=== PATIENT | male | born 1955 | race African-American/Black ===

== ENCOUNTER 2017-01-31 15:04 | Inpatient (IN) | payer MEDICAID ==
[~2017-01-31] VITALS: Ht 162.6 cm; Wt 76.2 kg
[2017-01-31] MEDS ORDERED: GLUCOPHAGE XR500 MG ORAL (15:14)
[2017-01-31] MEDS ORDERED: DILANTIN50 MG ORAL (15:14)
[2017-01-31 15:48] LABS: BASOPHILS % (AUTO) 0.9 % (0.0-2.0); EOSINOPHILS % (AUTO) 0.9 % (0.0-3.0); LYMPHOCYTES % (AUTO) 17.5 % (20.0-45.0); MEAN CORPUSCULAR HEMOGLOBIN 27.1 PG (27.0-31.0); MEAN CORPUSCULAR HGB CONC 31.1 G/DL (32.0-36.0); MEAN CORPUSCULAR VOLUME 87 FL (80-99); MEAN PLATELET VOLUME 7.1 FL (6.5-10.1); MONOCYTES % (AUTO) 4.5 % (1.0-10.0); NEUTROPHILS % (AUTO) 76.2 % (45.0-75.0); PLATELET COUNT 223 K/UL (150-450); RED BLOOD COUNT 4.87 M/UL (4.70-6.10); RED CELL DISTRIBUTION WIDTH 13.7 % (11.6-14.8); WHITE BLOOD COUNT 9.2 K/UL (4.8-10.8)
[2017-01-31 15:55] LABS: APPEARANCE,URINE CLEAR; KETONES,URINE NEGATIVE (NEGATIVE); LEUKOCYTE ESTERASE ,URINE NEGATIVE (NEGATIVE); NITRITE,URINE NEGATIVE (NEGATIVE); PH,URINE 7 (4.5-8.0); PROTEIN,URINE NEGATIVE (NEGATIVE); UROBILINOGEN,URINE NORMAL MG/DL (0.0-1.0)
[2017-01-31 16:12] LABS: ALANINE AMINOTRANSFERASE 20 U/L (3-41); ALBUMIN/GLOBULIN RATIO 1.3 (1.0-2.7); ANION GAP 15 (5-15); ASPARTATE AMINO TRANSFERASE 24 U/L (5-40); CALCIUM 9.6 mg/dL (8.6-10.2); CARBON DIOXIDE 24 mEQ/L (20-30); CHLORIDE 101 mEQ/L (98-107); CREATININE 0.9 mg/dL (0.7-1.2); GLOMERULAR FILTRATION RATE > 60 mL/min (>60); HEMOLYSIS 8; MAGNESIUM 1.9 mg/dL (1.7-2.5); POTASSIUM 3.9 mEQ/L (3.4-4.9); SODIUM 140 mEQ/L (135-145); TOTAL PROTEIN 7.1 g/dL (6.6-8.7)
[2017-01-31 16:24] VITALS: BP 97/62
--- NOTE | 2017-01-31 16:24 | Emergency Room Report ---
History of Present Illness General Chief Complaint: Abnormal Labs Source: Patient Present Illness HPI This patient is brought in by EMS. He presents with hypoglycemia. She has a history of diabetes. He is on duncan. He does not use insulin. He states that he was feeling very fatigued but otherwise has no complaints. EMS reports that he had a blood sugar of 50 and he was given glucagon. He denies fever or chills. He denies chest pain or shortness of breath. He denies abdominal pain. He has no other complaints. Allergies: Coded Allergies: No Known Allergies (Unverified , 01/31/17) Patient History Past Medical History: see triage record, DM, HTN, seizures Social History: Denies: alcohol use, drug use, smoking Reviewed Nursing Documentation: PMH: Agreed, PSxH: Agreed Nursing Documentation-PMH Past Medical History: No History, Except For Hx Hypertension: Yes Hx Diabetes: Yes Review of Systems All Other Systems: negative except mentioned in HPI Physical Exam Vital Signs Date Time Temp Pulse Resp B/P Pulse Ox O2 Delivery O2 Flow Rate FiO2 01/31/17 14:59 100.0 72 12 159/68 98 Room Air Sp02 EP Interpretation: reviewed, normal General Appearance: no apparent distress, alert, GCS 15, non-toxic Head: normocephalic, atraumatic Eyes: bilateral eye PERRL, bilateral eye normal inspection ENT: hearing grossly normal, normal pharynx, no angioedema, normal voice Neck: full range of motion, supple/symm/no masses Respiratory: chest non-tender, lungs clear, normal breath sounds, speaking full sentences Cardiovascular #1: regular rate, rhythm, no edema Gastrointestinal: normal bowel sounds, non tender, soft, non-distended, no guarding, no rebound Rectal: deferred Musculoskeletal: back normal, gait/station normal, normal range of motion, non- tender Neurologic: alert, oriented x3, responsive, motor strength/tone normal, sensory intact, speech normal Psychiatric: judgement/insight normal, memory normal, mood/affect normal, no suicidal/homicidal ideation Skin: normal color, no rash, warm/dry, well hydrated Medical Decision Making Diagnostic Impression: Primary Impression: Hypoglycemia ER Course This patient presented with hypoglycemia. Patient was given D50 several times. His also given a high carbohydrate meal. However, he continued to have episodes of hypoglycemia during his ED course. Therefore, he was admitted for further monitoring of his blood sugar. I am unsure of the etiology of the patient's hypoglycemia. The patient states that he is only on metformin. He was admitted for further evaluation and treatment. Labs Test 01/31/17 15:20 01/31/17 15:30 White Blood Count 9.2 K/UL (4.8-10.8) Red Blood Count 4.87 M/UL (4.70-6.10) Hemoglobin 13.2 G/DL (14.2-18.0) Hematocrit 42.5 % (42.0-52.0) Mean Corpuscular Volume 87 FL (80-99) Mean Corpuscular Hemoglobin 27.1 PG (27.0-31.0) Mean Corpuscular Hemoglobin Concent 31.1 G/DL (32.0-36.0) Red Cell Distribution Width 13.7 % (11.6-14.8) Platelet Count 223 K/UL (150-450) Mean Platelet Volume 7.1 FL (6.5-10.1) Neutrophils (%) (Auto) 76.2 % (45.0-75.0) Lymphocytes (%) (Auto) 17.5 % (20.0-45.0) Monocytes (%) (Auto) 4.5 % (1.0-10.0) Eosinophils (%) (Auto) 0.9 % (0.0-3.0) Basophils (%) (Auto) 0.9 % (0.0-2.0) Sodium Level 140 mEQ/L (135-145) Potassium Level 3.9 mEQ/L (3.4-4.9) Chloride Level 101 mEQ/L (98-107) Carbon Dioxide Level 24 mEQ/L (20-30) Anion Gap 15 (5-15) Blood Urea Nitrogen 14 mg/dL (7-23) Creatinine 0.9 mg/dL (0.7-1.2) Estimat Glomerular Filtration Rate > 60 mL/min (>60) Glucose Level 73 mg/dL (74-106) Calcium Level 9.6 mg/dL (8.6-10.2) Magnesium Level 1.9 mg/dL (1.7-2.5) Total Bilirubin < 0.2 mg/dL (0.0-1.2) Aspartate Amino Transf (AST/SGOT) 24 U/L (5-40) Alanine Aminotransferase (ALT/SGPT) 20 U/L (3-41) Alkaline Phosphatase 74 U/L (40-129) Total Protein 7.1 g/dL (6.6-8.7) Albumin 4.1 g/dL (3.5-5.2) Globulin 3.0 g/dL Albumin/Globulin Ratio 1.3 (1.0-2.7) Urine Color Pale yellow Urine Appearance Clear Urine pH 7 (4.5-8.0) Urine Specific [place] 1.010 (1.005-1.035) Urine Protein Negative (NEGATIVE) Urine Glucose (UA) Negative (NEGATIVE) Urine Ketones Negative (NEGATIVE) Urine Occult Blood Negative (NEGATIVE) Urine Nitrite Negative (NEGATIVE) Urine Bilirubin Negative (NEGATIVE) Urine Urobilinogen Normal MG/DL (0.0-1.0) Urine Leukocyte Esterase Negative (NEGATIVE) EKG Diagnostic Results Rate: normal Rhythm: NSR ST Segments: no acute changes Rhythm Strip Diag. Results EP Interpretation: yes Rate: 60's Rhythm: NSR, no PVC's, no ectopy Last Vital Signs Date Time Temp Pulse Resp B/P Pulse Ox O2 Delivery O2 Flow Rate FiO2 01/31/17 14:59 100.0 72 12 159/68 98 Room Air Disposition: ADMITTED INPATIENT Condition: Serious Referrals: [facility],REFERRING (PCP) INOCENTE POLLACK D.O. Jan 31, 2017 16:24
[2017-01-31 18:23] VITALS: BP 131/58
[2017-01-31] MEDS ORDERED: Mylanta II UD 30ml ORAL PRN (20:30)
[2017-01-31] MEDS ORDERED: Morphine Sulfate 2mg/ml Inj IVP PRN (20:30)
[2017-01-31] MEDS ORDERED: LORazepam Inj 2mg/ml 1ml IV PRN (20:30)
[2017-01-31] MEDS ORDERED: Zolpidem 5mg tab ORAL PRN (20:30)
[2017-01-31] MEDS ORDERED: Miralax 17gm pkt ORAL PRN (20:30)
[2017-01-31 20:39] VITALS: BP 129/73
[2017-01-31] MEDS: NovoLOG Insulin Flexpen SUBQ SCH (21:00)
[2017-01-31] MEDS: D5 1/2NS 1,000 ML IV SCH (22:10)
[2017-02-01 00:11] VITALS: BP 130/69
[2017-02-01 04:14] VITALS: BP 144/79
[2017-02-01] MEDS: NovoLOG Insulin Flexpen SUBQ SCH ×4 (06:30→20:42)
[2017-02-01 08:00] VITALS: BP 139/78
[2017-02-01 08:05] LABS: BASOPHILS % (AUTO) 0.8 % (0.0-2.0); EOSINOPHILS % (AUTO) 1.6 % (0.0-3.0); LYMPHOCYTES % (AUTO) 27.1 % (20.0-45.0); MEAN CORPUSCULAR HEMOGLOBIN 27.8 PG (27.0-31.0); MEAN CORPUSCULAR HGB CONC 31.7 G/DL (32.0-36.0); MEAN CORPUSCULAR VOLUME 88 FL (80-99); MEAN PLATELET VOLUME 6.7 FL (6.5-10.1); MONOCYTES % (AUTO) 5.6 % (1.0-10.0); NEUTROPHILS % (AUTO) 64.9 % (45.0-75.0); PLATELET COUNT 200 K/UL (150-450); RED BLOOD COUNT 4.68 M/UL (4.70-6.10); RED CELL DISTRIBUTION WIDTH 13.5 % (11.6-14.8); WHITE BLOOD COUNT 9.6 K/UL (4.8-10.8)
[2017-02-01] MEDS ORDERED: Phenytoin 50mg tab ORAL SCH (09:00)
[2017-02-01] MEDS ORDERED: COLACE100 MG ORAL (09:52)
[2017-02-01] MEDS ORDERED: DICLOFENAC POTA50 MG PO (09:52)
[2017-02-01] MEDS ORDERED: GLIPIZIDE10 MG PO (09:52)
[2017-02-01] MEDS ORDERED: KEPPRA500 M4 ORAL (09:52)
[2017-02-01] MEDS ORDERED: TRAZODONE HCL50 MG ORAL (09:52)
[2017-02-01] MEDS ORDERED: METFORMIN HCL500 M4 ORAL (09:52)
[2017-02-01] MEDS ORDERED: ABILIFY20 MG ORAL (09:52)
[2017-02-01] MEDS ORDERED: D5 1/2NS 1000ml IV ONE (10:03)
[2017-02-01] MEDS: D5 1/2NS 1,000 ML IV SCH ×2 (10:10→18:44)
[2017-02-01 10:17] LABS: ALANINE AMINOTRANSFERASE 21 U/L (3-41); ALBUMIN/GLOBULIN RATIO 0.9 (1.0-2.7); ANION GAP 14 (5-15); ASPARTATE AMINO TRANSFERASE 26 U/L (5-40); CALCIUM 9.1 mg/dL (8.6-10.2); CARBON DIOXIDE 22 mEQ/L (20-30); CHLORIDE 100 mEQ/L (98-107); CHOLESTEROL 120 mg/dL (< 200); CHOLESTEROL/HDL RATIO 2.7 (3.3-4.4); CREATININE 0.9 mg/dL (0.7-1.2); GLOMERULAR FILTRATION RATE > 60 mL/min (>60); HEMOLYSIS 7; LDL CHOLESTEROL (CALC.) 65 mg/dL (60-99); POTASSIUM 4.7 mEQ/L (3.4-4.9); SODIUM 136 mEQ/L (135-145); TOTAL PROTEIN 7.8 g/dL (6.6-8.7)
[2017-02-01 10:18] LABS: THYROID STIMULATING HORMONE 0.984 uIU/mL (0.300-4.500)
[2017-02-01] MEDS ORDERED: Pneumococcal Vaccine 25mcg/0.5ml IM ONE (11:00)
--- NOTE | 2017-02-01 11:38 | Neurology Progress Note ---
Objective Physical Exam Last Vital Signs Date Time Temp Pulse Resp B/P Pulse Ox O2 Delivery O2 Flow Rate FiO2 02/01/17 08:00 75 02/01/17 08:00 97.9 20 139/78 97 Room Air Laboratory Tests Test 01/31/17 15:20 01/31/17 15:30 02/01/17 07:45 White Blood Count 9.2 K/UL (4.8-10.8) 9.6 K/UL (4.8-10.8) Red Blood Count 4.87 M/UL (4.70-6.10) 4.68 M/UL (4.70-6.10) L Hemoglobin 13.2 G/DL (14.2-18.0) L 13.0 G/DL (14.2-18.0) L Hematocrit 42.5 % (42.0-52.0) 40.9 % (42.0-52.0) L Mean Corpuscular Volume 87 FL (80-99) 88 FL (80-99) Mean Corpuscular Hemoglobin 27.1 PG (27.0-31.0) 27.8 PG (27.0-31.0) Mean Corpuscular Hemoglobin Concent 31.1 G/DL (32.0-36.0) L 31.7 G/DL (32.0-36.0) L Red Cell Distribution Width 13.7 % (11.6-14.8) 13.5 % (11.6-14.8) Platelet Count 223 K/UL (150-450) 200 K/UL (150-450) Mean Platelet Volume 7.1 FL (6.5-10.1) 6.7 FL (6.5-10.1) Neutrophils (%) (Auto) 76.2 % (45.0-75.0) H 64.9 % (45.0-75.0) Lymphocytes (%) (Auto) 17.5 % (20.0-45.0) L 27.1 % (20.0-45.0) Monocytes (%) (Auto) 4.5 % (1.0-10.0) 5.6 % (1.0-10.0) Eosinophils (%) (Auto) 0.9 % (0.0-3.0) 1.6 % (0.0-3.0) Basophils (%) (Auto) 0.9 % (0.0-2.0) 0.8 % (0.0-2.0) Sodium Level 140 mEQ/L (135-145) 136 mEQ/L (135-145) Potassium Level 3.9 mEQ/L (3.4-4.9) 4.7 mEQ/L (3.4-4.9) Chloride Level 101 mEQ/L (98-107) 100 mEQ/L (98-107) Carbon Dioxide Level 24 mEQ/L (20-30) 22 mEQ/L (20-30) Anion Gap 15 (5-15) 14 (5-15) Blood Urea Nitrogen 14 mg/dL (7-23) 12 mg/dL (7-23) Creatinine 0.9 mg/dL (0.7-1.2) 0.9 mg/dL (0.7-1.2) Estimat Glomerular Filtration Rate > 60 mL/min (>60) > 60 mL/min (>60) Glucose Level 73 mg/dL (74-106) L 164 mg/dL (74-106) H Calcium Level 9.6 mg/dL (8.6-10.2) 9.1 mg/dL (8.6-10.2) Magnesium Level 1.9 mg/dL (1.7-2.5) Total Bilirubin < 0.2 mg/dL (0.0-1.2) 0.2 mg/dL (0.0-1.2) Aspartate Amino Transf (AST/SGOT) 24 U/L (5-40) 26 U/L (5-40) Alanine Aminotransferase (ALT/SGPT) 20 U/L (3-41) 21 U/L (3-41) Alkaline Phosphatase 74 U/L (40-129) 70 U/L (40-129) Total Protein 7.1 g/dL (6.6-8.7) 7.8 g/dL (6.6-8.7) Albumin 4.1 g/dL (3.5-5.2) 3.7 g/dL (3.5-5.2) Globulin 3.0 g/dL 4.1 g/dL Albumin/Globulin Ratio 1.3 (1.0-2.7) 0.9 (1.0-2.7) L Urine Color Pale yellow Urine Appearance Clear Urine pH 7 (4.5-8.0) Urine Specific [place] 1.010 (1.005-1.035) Urine Protein Negative (NEGATIVE) Urine Glucose (UA) Negative (NEGATIVE) Urine Ketones Negative (NEGATIVE) Urine Occult Blood Negative (NEGATIVE) Urine Nitrite Negative (NEGATIVE) Urine Bilirubin Negative (NEGATIVE) Urine Urobilinogen Normal MG/DL (0.0-1.0) Urine Leukocyte Esterase Negative (NEGATIVE) Triglycerides Level 54 mg/dL (< 150) Cholesterol Level 120 mg/dL (< 200) LDL Cholesterol 65 mg/dL (60-99) HDL Cholesterol 44 mg/dL (> 60) Cholesterol/HDL Ratio 2.7 (3.3-4.4) L Thyroid Stimulating Hormone (TSH) 0.984 uIU/mL (0.300-4.500) Impression/Recommendations Problems: (1) Seizure disorder (2) Hypoglycemia Status: stable Recommendations #[id number] JENNIFER SIERRA Feb 01, 2017 11:38
[2017-02-01] MEDS: Phenytoin 100mg cap ORAL SCH ×2 (11:53→20:40)
[2017-02-01 12:00] VITALS: BP 117/78
--- NOTE | 2017-02-01 13:07 | History and Physical ---
History of Present Illness General Date patient seen: Feb 01, 2017 Reason for Hospitalization: Abnormal Labs Present Illness HPI 62 year old male with hx of DM brought in by EMS with CC of hypoglycemia. He was feeling very fatigued but otherwise has no complaints. EMS reports that he had a blood sugar of 50 and he was given glucagon. He is admitted for refractory hypoglycemia and especially that Glipizide has a long half-time. Allergies: Coded Allergies: No Known Allergies (Unverified , 01/31/17) Medication History Scheduled Aripiprazole* (Abilify*), 30 MG ORAL TID, (Reported) Docusate Sodium* (Colace*), 100 MG ORAL DAILY, (Reported) Glipizide (Glipizide), 10 MG PO BID, (Reported) Levetiracetam (Keppra), 500 MG ORAL EVERY 12 HOURS, (Reported) Metformin Hcl (Metformin Hcl Er), 500 MG ORAL BID, (Reported) Phenytoin (Dilantin), 50 MG ORAL THREE TIMES A DAY, (Reported) Trazodone Hcl* (Desyrel*), 50 MG ORAL BEDTIME, (Reported) Scheduled PRN Diclofenac Potassium (Diclofenac Potassium), 50 MG PO DAILY PRN for For Headache , (Reported) Patient History Healthcare decision maker pt alert and oriented x2 Resuscitation status Full Code Advanced Directive on File Review of Systems All Other Systems: negative except mentioned in HPI Physical Exam General Appearance: WD/WN, no apparent distress Lines, tubes and drains: peripheral HEENT: normocephalic, atraumatic Neck: non-tender, normal alignment Respiratory/Chest: chest wall non-tender Cardiovascular/Chest: normal peripheral pulses Abdomen: normal bowel sounds Genitourinary/Rectal: normal genital exam Extremities: normal range of motion Last 24 Hour Vital Signs Date Time Temp Pulse Resp B/P Pulse Ox O2 Delivery O2 Flow Rate FiO2 02/01/17 08:00 75 02/01/17 08:00 97.9 81 20 139/78 97 Room Air 02/01/17 04:14 98.2 86 20 144/79 95 Room Air 02/01/17 04:00 60 02/01/17 00:11 98.7 71 21 130/69 95 Room Air 02/01/17 00:00 67 01/31/17 20:39 97.2 72 20 129/73 94 Room Air 01/31/17 19:30 71 01/31/17 19:16 98.7 83 21 131/58 97 Room Air 01/31/17 18:23 98.7 83 21 131/58 97 Room Air 01/31/17 16:24 98.7 67 18 97/62 97 Room Air 01/31/17 14:59 100.0 72 12 159/68 98 Room Air Intake and Output 01/31/17 02/01/17 19:00 07:00 Intake Total 240 ml 600 ml Output Total 1175 ml Balance 240 ml -575 ml Intake Oral 240 ml IV Total 600 ml Output Urine Total 1175 ml # Voids 1 1 # Bowel Movements 3 Laboratory Tests Test 01/31/17 15:20 01/31/17 15:30 02/01/17 07:45 White Blood Count 9.2 K/UL (4.8-10.8) 9.6 K/UL (4.8-10.8) Red Blood Count 4.87 M/UL (4.70-6.10) 4.68 M/UL (4.70-6.10) L Hemoglobin 13.2 G/DL (14.2-18.0) L 13.0 G/DL (14.2-18.0) L Hematocrit 42.5 % (42.0-52.0) 40.9 % (42.0-52.0) L Mean Corpuscular Volume 87 FL (80-99) 88 FL (80-99) Mean Corpuscular Hemoglobin 27.1 PG (27.0-31.0) 27.8 PG (27.0-31.0) Mean Corpuscular Hemoglobin Concent 31.1 G/DL (32.0-36.0) L 31.7 G/DL (32.0-36.0) L Red Cell Distribution Width 13.7 % (11.6-14.8) 13.5 % (11.6-14.8) Platelet Count 223 K/UL (150-450) 200 K/UL (150-450) Mean Platelet Volume 7.1 FL (6.5-10.1) 6.7 FL (6.5-10.1) Neutrophils (%) (Auto) 76.2 % (45.0-75.0) H 64.9 % (45.0-75.0) Lymphocytes (%) (Auto) 17.5 % (20.0-45.0) L 27.1 % (20.0-45.0) Monocytes (%) (Auto) 4.5 % (1.0-10.0) 5.6 % (1.0-10.0) Eosinophils (%) (Auto) 0.9 % (0.0-3.0) 1.6 % (0.0-3.0) Basophils (%) (Auto) 0.9 % (0.0-2.0) 0.8 % (0.0-2.0) Sodium Level 140 mEQ/L (135-145) 136 mEQ/L (135-145) Potassium Level 3.9 mEQ/L (3.4-4.9) 4.7 mEQ/L (3.4-4.9) Chloride Level 101 mEQ/L (98-107) 100 mEQ/L (98-107) Carbon Dioxide Level 24 mEQ/L (20-30) 22 mEQ/L (20-30) Anion Gap 15 (5-15) 14 (5-15) Blood Urea Nitrogen 14 mg/dL (7-23) 12 mg/dL (7-23) Creatinine 0.9 mg/dL (0.7-1.2) 0.9 mg/dL (0.7-1.2) Estimat Glomerular Filtration Rate > 60 mL/min (>60) > 60 mL/min (>60) Glucose Level 73 mg/dL (74-106) L 164 mg/dL (74-106) H Calcium Level 9.6 mg/dL (8.6-10.2) 9.1 mg/dL (8.6-10.2) Magnesium Level 1.9 mg/dL (1.7-2.5) Total Bilirubin < 0.2 mg/dL (0.0-1.2) 0.2 mg/dL (0.0-1.2) Aspartate Amino Transf (AST/SGOT) 24 U/L (5-40) 26 U/L (5-40) Alanine Aminotransferase (ALT/SGPT) 20 U/L (3-41) 21 U/L (3-41) Alkaline Phosphatase 74 U/L (40-129) 70 U/L (40-129) Total Protein 7.1 g/dL (6.6-8.7) 7.8 g/dL (6.6-8.7) Albumin 4.1 g/dL (3.5-5.2) 3.7 g/dL (3.5-5.2) Globulin 3.0 g/dL 4.1 g/dL Albumin/Globulin Ratio 1.3 (1.0-2.7) 0.9 (1.0-2.7) L Urine Color Pale yellow Urine Appearance Clear Urine pH 7 (4.5-8.0) Urine Specific [place] 1.010 (1.005-1.035) Urine Protein Negative (NEGATIVE) Urine Glucose (UA) Negative (NEGATIVE) Urine Ketones Negative (NEGATIVE) Urine Occult Blood Negative (NEGATIVE) Urine Nitrite Negative (NEGATIVE) Urine Bilirubin Negative (NEGATIVE) Urine Urobilinogen Normal MG/DL (0.0-1.0) Urine Leukocyte Esterase Negative (NEGATIVE) Triglycerides Level 54 mg/dL (< 150) Cholesterol Level 120 mg/dL (< 200) LDL Cholesterol 65 mg/dL (60-99) HDL Cholesterol 44 mg/dL (> 60) Cholesterol/HDL Ratio 2.7 (3.3-4.4) L Thyroid Stimulating Hormone (TSH) 0.984 uIU/mL (0.300-4.500) Phenytoin (Dilantin) Level < 0.8 ug/mL (10-20) L Height (Feet): 5 Height (Inches): 4.00 Weight (Pounds): 168 Medications Current Medications Medications (Trade) Dose Ordered Sig/[place] Route PRN Reason Start Time Stop Time Status Last Admin Dose Admin Acetaminophen (Tylenol) 650 mg Q4H PRN ORAL fever 01/31/17 20:30 03/02/17 20:29 Al Hydroxide/Mg Hydroxide (Mylanta II) 30 ml Q6H PRN ORAL dyspepsia 01/31/17 20:30 03/02/17 20:29 Dextrose (Dextrose 50%) STAT PRN IV Hypoglycemia 01/31/17 20:30 03/02/17 20:29 01/31/17 19:25 Dextrose/Sodium Chloride (D5 0.45% NS) 1,000 ml @ 75 mls/hr [id number] IV 01/31/17 21:00 03/02/17 20:59 01/31/17 22:10 Insulin Aspart BEFORE MEALS AND HS SUBQ 01/31/17 21:00 03/02/17 20:59 02/01/17 11:48 Levetiracetam (Keppra) 1,000 mg Q12HR ORAL 02/01/17 12:00 03/03/17 11:59 02/01/17 11:52 Lorazepam (Ativan 2mg/ml 1ml) 0.5 mg Q4H PRN IV For Anxiety 01/31/17 20:30 02/07/17 20:29 Morphine Sulfate (Morphine Sulfate) 1 mg EVERY 4 HOURS PRN IVP For Pain 01/31/17 20:30 02/07/17 20:29 Ondansetron HCl (Zofran) 4 mg Q6H PRN IVP Nausea & Vomiting 01/31/17 20:30 03/02/17 20:29 Phenytoin (Dilantin) 100 mg Q12HR ORAL 02/01/17 12:00 03/03/17 11:59 02/01/17 11:53 Polyethylene Glycol (Miralax) 17 gm HSPRN PRN ORAL Constipation 01/31/17 20:30 03/02/17 20:29 Zolpidem Tartrate (Ambien) 5 mg HSPRN PRN ORAL Insomnia 01/31/17 20:30 03/02/17 20:29 Assessment/Plan Problem List: (1) HTN (hypertension) ICD Codes: I10 - Essential (primary) hypertension SNOMED: 99981408 (2) Hypoglycemia ICD Codes: E16.2 - Hypoglycemia, unspecified SNOMED: 526763538 (3) Seizure disorder ICD Codes: G40.909 - Epilepsy, unspecified, not intractable, without status epilepticus SNOMED: 909965331 Assessment/Plan D5 1/2ns sliding scale Endo evaluation will dc Glipizide DENNIS IVERSON Feb 01, 2017 13:07
[2017-02-01 16:00] VITALS: BP 122/83
[2017-02-01 20:00] VITALS: BP 140/66
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
[2017-02-02] VITALS: BP 146/81
[2017-02-02 04:20] VITALS: BP 123/74
[2017-02-02] MEDS: NovoLOG Insulin Flexpen SUBQ SCH ×2 (06:11→12:18)
[2017-02-02 08:00] VITALS: BP 123/78
--- NOTE | 2017-02-02 08:43 | Pulmonology Progress Note ---
Assessment/Plan Assessment/Plan ASSESSMENT hypoglycemia chronic seizure disorder with poor control (subtherapeutic anticonvulsant levels ) HTN DM chronic psychiatric disorder hx of head trauma at age of 20 PLAN OF CARE IVF with dextrose, no further hypoglycemia, monitor closely decrease IVF rate endo eval SS of insulin prn seizure precautions, neuro follows anticonvulsant dosages adjusted as per neuro no further seizure activity lipid panel stable venous Duplex BLE negative monitor BP, stable, not on any antiHTN medications for now dc to [facility] today scripts provided Subjective Allergies: Coded Allergies: No Known Allergies (Unverified , 01/31/17) Subjective no seizure activity tele negative Objective Last 24 Hour Vital Signs Date Time Temp Pulse Resp B/P Pulse Ox O2 Delivery O2 Flow Rate FiO2 02/02/17 04:20 97.2 68 20 123/74 95 Room Air 02/02/17 04:00 61 02/02/17 00:00 61 02/02/17 00:00 97.7 69 18 146/81 97 Room Air 02/01/17 20:00 97.9 72 20 140/66 95 Room Air 02/01/17 20:00 66 02/01/17 16:00 97.6 84 20 122/83 97 Room Air 02/01/17 16:00 70 02/01/17 12:00 98.1 80 18 117/78 98 Room Air 02/01/17 12:00 74 Intake and Output 02/01/17 02/02/17 19:00 07:00 Intake Total 750 ml 825 ml Output Total 600 ml Balance 750 ml 225 ml Intake Oral 300 ml IV Total 450 ml 825 ml Output Urine Total 600 ml # Bowel Movements 1 General Appearance: WD/WN, no acute distress HEENT: normocephalic, atraumatic, anicteric, PERRL Respiratory/Chest: lungs clear, no respiratory distress, no accessory muscle use Cardiovascular: normal rate, regular rhythm, no JVD Abdomen: normal bowel sounds, soft, non tender Extremities: no edema, pedal pulses normal Neurologic/Psychiatric: alert, responsive Musculoskeletal: normal muscle bulk Microbiology Date/Time Source Procedure Growth Status 01/31/17 22:50 Rectum VRE Culture - Final NO VANCOMYCIN RESISTANT ENTEROCOCCUS ... Complete Current Medications Medications (Trade) Dose Ordered Sig/[place] Route PRN Reason Start Time Stop Time Status Last Admin Dose Admin Acetaminophen (Tylenol) 650 mg Q4H PRN ORAL fever 01/31/17 20:30 03/02/17 20:29 Al Hydroxide/Mg Hydroxide (Mylanta II) 30 ml Q6H PRN ORAL dyspepsia 01/31/17 20:30 03/02/17 20:29 Dextrose (Dextrose 50%) STAT PRN IV Hypoglycemia 01/31/17 20:30 03/02/17 20:29 01/31/17 19:25 Dextrose/Sodium Chloride (D5 0.45% NS) 1,000 ml @ 75 mls/hr [id number] IV 01/31/17 21:00 03/02/17 20:59 02/01/17 18:44 Insulin Aspart BEFORE MEALS AND HS SUBQ 01/31/17 21:00 03/02/17 20:59 02/02/17 06:11 Levetiracetam (Keppra) 1,000 mg Q12HR ORAL 02/01/17 12:00 03/03/17 11:59 02/01/17 20:40 Lorazepam (Ativan 2mg/ml 1ml) 0.5 mg Q4H PRN IV For Anxiety 01/31/17 20:30 02/07/17 20:29 Morphine Sulfate (Morphine Sulfate) 1 mg EVERY 4 HOURS PRN IVP For Pain 01/31/17 20:30 02/07/17 20:29 Ondansetron HCl (Zofran) 4 mg Q6H PRN IVP Nausea & Vomiting 01/31/17 20:30 03/02/17 20:29 Phenytoin (Dilantin) 100 mg Q12HR ORAL 02/01/17 12:00 03/03/17 11:59 02/01/17 20:40 Polyethylene Glycol (Miralax) 17 gm HSPRN PRN ORAL Constipation 01/31/17 20:30 03/02/17 20:29 Zolpidem Tartrate (Ambien) 5 mg HSPRN PRN ORAL Insomnia 01/31/17 20:30 03/02/17 20:29 Zenobia Potter NP (Vanchtein) Feb 02, 2017 08:43
[2017-02-02] MEDS: Phenytoin 100mg cap ORAL SCH (08:54)
[2017-02-02] MEDS ORDERED: D5 1/2NS 1,000 ML IV SCH (09:00)
[2017-02-02] MEDS ORDERED: KEPPRA500 M3 ORAL (10:54)
[2017-02-02] MEDS ORDERED: DILANTIN100 MG ORAL (10:54)
[2017-02-02 12:00] VITALS: BP 124/70
--- NOTE | 2017-02-04 09:16 | Discharge Summary ---
Discharge Summary Hospital Course Date of Admission Jan 31, 2017 at 17:40 Date of Discharge Feb 02, 2017 at 13:40 Admitting Diagnosis hypoglycemia HPI Iftikhar Hernández is a 62 year old male who was admitted on Jan 31, 2017 at 17:40 for Hypoglycemia Hospital Course dc summary #[id number] Discharge Medications New Medications: Levetiracetam (Levetiracetam) 500 Mg Tablet 1000 MG ORAL Q12HR, #60 TAB Phenytoin Sodium Extended* (Dilantin*) 100 Mg Capsule 100 MG ORAL Q12HR, #60 CAP Continued Medications: Aripiprazole* (Abilify*) 20 Mg Tablet 30 MG ORAL TID, TAB Diclofenac Potassium (Diclofenac Potassium) 50 Mg Tablet 50 MG PO DAILY PRN for For Headache, TAB Docusate Sodium* (Colace*) 100 Mg Capsule 100 MG ORAL DAILY, CAP Metformin Hcl (Metformin Hcl Er) 500 Mg Tab.er.24 500 MG ORAL BID, TAB Trazodone Hcl* (Desyrel*) 50 Mg Tablet 50 MG ORAL BEDTIME, TAB Discontinued Medications: Levetiracetam (Keppra) 500 Mg Tablet 500 MG ORAL EVERY 12 HOURS, #60 TAB 0 Refills Discharge Condition Upon Discharge: stable Discharge Disposition Patient was discharged to [facility] (01) Discharge Diagnoses: Tariq (Silverio)Zenobia NP Feb 04, 2017 09:16
--- NOTE | 2017-02-04 22:37 | Cardiology Report ---
APPROVED REPORT EKG Measurement Heart [id number] CO 140P75 [id number] Normal sinus rhythm Normal ECG
--- NOTE | 2017-02-05 03:18 | Discharge Summary 2 SIG ---
DATE OF ADMISSION: 01/31/2017 DATE OF DISCHARGE: 02/02/2017 REASON FOR ADMISSION: 62-year-old male was brought to emergency department with episode of hypoglycemia. The patient has a history of diabetes. The patient was taking metformin and glipizide. The patient was not taking insulin. The patient reported being fatigued, but had no other symptoms. In the field, blood sugar was 50. The patient was given glucagon. He denied fever or chills. He denied chest pain or shortness of breath. He denied abdominal pain or urinary symptoms. Troponin was negative. EKG with normal sinus rhythm, no ischemic changes.. The patient with a history of hypertension and seizure disorder. No evidence of recent seizure activity. Laboratory workup was unremarkable. The patient was given dextrose several times in the emergency department as well as a high carbohydrate meal; however, the patient continued to have episodes of hypoglycemia during the emergency department course. Therefore, the patient was admitted for further management of his blood sugar. ADMITTING DIAGNOSES: 1. Hypoglycemia. 2. Diabetes mellitus. 3. Seizure disorder. 4. Hypertension. HOSPITAL STAY: The patient admitted to telemetry floor. The patient started on the IV fluids with dextrose. Glipizide stopped. Blood sugar stabilized. No further episodes of hypoglycemia. Seizure precaution maintained. Neurologist evaluation requested. Subtherapeutic dose of Dilantin. Anticonvulsant dosages were adjusted by neurologist. Lipid panel checked and was stable. Venous duplex bilateral lower extremities was negative. Blood pressure was stable, not on any antihypertensive medication at the time. The patient with a history of head trauma at the age of 20, and since that time have seizure disorder. The patient was stable for discharge to Board and Care. DISCHARGE DIAGNOSES: 1. Hypoglycemia. 2. Chronic seizure disorder with poor control (subtherapeutic anticonvulsant levels). 3. Hypertension. 4. Diabetes. 5. Chronic psychiatric disorder. 6. History of head trauma at age of 20. DISCHARGE MEDICATIONS: See medication reconciliation list. Prescription for new dosages of anti-convulsant medication provided. Off glipizide. Continue metformin. DISCHARGE INSTRUCTIONS: The patient to follow up with the primary medical doctor. Reinforce compliance with medication. Lalit Spencer M.D. Zenobia MalinTierney oliveira DR: ASMI JOB#: [id number] CC: LESLI
--- NOTE | 2017-02-07 23:20 | Diagnostic Imaging Report ---
APPROVED REPORT CPT Code: 15046 Present Symptoms Comments: Pain BILATERAL: Imaging reveals a patent deep venous system bilaterally. There is no evidence of thrombus within the femoral, popliteal or tibial segments. The greater saphenous veins are also within normal limits. Doppler indicates normal spontaneous flow within these segments.
== END 2017-02-02 13:40 | disposition home or self-care (01) | DRG 420 ==
LOC: EDBD 15:04 → EMR 15:30 → 2E 17:40 → EDBEDREQ 18:35
DX: E11.649 Type 2 diabetes mellitus with hypoglycemia without coma (principal); I10 Essential (primary) hypertension; G40.909 Epilepsy, unspecified, not intractable, without status epilepticus; Z87.820 Personal history of traumatic brain injury; F99 Mental disorder, not otherwise specified
CPT/HCPCS: 36415; 80053; 80061; 80185; 80299; 81003; 82962; 83735; 84443; 85025; 87081; 90732; 93005; 93970; J1815

== ENCOUNTER 2018-09-13 05:16 | Inpatient (IN) | payer MEDICAID ==
[2018-09-13] VITALS (9 sets, daily range): BP systolic 103–151; BP diastolic 61–80
[~2018-09-13] VITALS: Ht 162.6 cm; Wt 67.6 kg
[~2018-09-13 05:16] MED LIST: ABILIFY20 MG ORAL; COLACE100 MG ORAL; DICLOFENAC POTA50 MG PO; DILANTIN100 MG ORAL; DILANTIN50 MG ORAL; GLIPIZIDE10 MG PO; GLUCOPHAGE XR500 MG ORAL; KEPPRA500 M3 ORAL; KEPPRA500 M4 ORAL; METFORMIN HCL500 M4 ORAL; TRAZODONE HCL50 MG ORAL
--- NOTE | 2018-09-13 05:20 | Emergency Room Report ---
History of Present Illness General Chief Complaint: Overdose Source: Patient, EMS (Otis Goldman MD) Present Illness HPI This is a 53-year-old male who is homeless. He called 911 because he claimed that he took it seen Abilify pills. He took it about an hour ago. He said his suicidal. He just got out of long term 2 days ago. Before that he was at a psychiatric facility. Denies any fever chills but no nausea no vomiting. Similar symptom in the past. Denies any other complaint. Not taking his medication. (Otis Goldman MD) Allergies: Coded Allergies: No Known Allergies (Unverified , 01/31/17) Patient History Past Medical History: see triage record, old chart reviewed, psych hx, schizophrenia, bipolar, diabetes, seizures Past Surgical History: other Family History: none Social History: other Immunizations: other Reviewed Nursing Documentation: PMH: Agreed; PSxH: Agreed (Otis Goldman MD) Nursing Documentation-PMH Hx Diabetes: Yes Hx Seizures: Yes (Otis Goldman MD) Review of Systems ENT: Denies: sore throat Cardiovascular: Denies: chest pain, palpitations Gastrointestinal/Abdominal: Denies: nausea, vomiting, diarrhea Musculoskeletal: Denies: back problems Skin: Denies: rash Neurological: Denies: VALDEZ, seizures All Other Systems: negative except mentioned in HPI (Otis Goldman MD) Physical Exam Vital Signs Date Time Temp Pulse Resp B/P (MAP) Pulse Ox O2 Delivery O2 Flow Rate FiO2 09/13/18 05:09 98.4 85 16 144/90 98 vitals normal Sp02 EP Interpretation: reviewed, normal General Appearance: alert/responsive, no apparent distress, non-toxic Head: normocephalic, atraumatic Eyes: PERRL, EOMI ENT: oropharynx normal Neck: supple/symm/no masses Respiratory: effort normal, no rhonchi, no wheezing Cardiovascular: no murmur, gallop, rub Gastrointestinal: non-tender, no mass, non-distended, no rebound/guarding, normal bowel sounds Musculoskeletal: gait & station normal Neurologic: oriented x3, sensory intact, motor strength/tone normal Skin: no rash, normal palpation (Otis Goldman MD) Medical Decision Making Diagnostic Impression: Primary Impression: Drug overdose Qualified Codes: T50.902A - Poisoning by unspecified drugs, medicaments and biological substances, intentional self-harm, initial encounter Additional Impressions: Suicidal behavior Qualified Codes: T14.91XA - Suicide attempt, initial encounter Unsteady gait Schizophrenia Qualified Codes: F20.9 - Schizophrenia, unspecified Cocaine abuse ER Course Patient alleged that he took 15 Abilify tablets. No evidence of any toxicity. This of his action and suicidal mediation, police placed him on a 5150. Labs and urine sent. Patient is medically clear, we'll get psych evaluation. (Otis Goldman MD) ER Course Please see above note. Apparently patient with unsteady gait which has not improved with observation. Needs assistance to stand. Unable to ambulate on own. Patient denies alcohol. Recently in long term. States usually takes Abilify but has not had for several days. Patient will be given Abilify and thiamine. Admit med with sitter. Contact Dr. Cueto for consultation. Laboratory Tests Test 09/13/18 06:00 09/13/18 06:20 White Blood Count 6.6 K/UL (4.8-10.8) Red Blood Count 4.88 M/UL (4.70-6.10) Hemoglobin 14.2 G/DL (14.2-18.0) Hematocrit 40.9 % (42.0-52.0) L Mean Corpuscular Volume 84 FL (80-99) Mean Corpuscular Hemoglobin 29.0 PG (27.0-31.0) Mean Corpuscular Hemoglobin Concent 34.6 G/DL (32.0-36.0) Red Cell Distribution Width 12.6 % (11.6-14.8) Platelet Count 203 K/UL (150-450) Mean Platelet Volume 5.8 FL (6.5-10.1) L Neutrophils (%) (Auto) 60.3 % (45.0-75.0) Lymphocytes (%) (Auto) 23.4 % (20.0-45.0) Monocytes (%) (Auto) 12.6 % (1.0-10.0) H Eosinophils (%) (Auto) 2.9 % (0.0-3.0) Basophils (%) (Auto) 0.7 % (0.0-2.0) Sodium Level 140 MMOL/L (136-145) Potassium Level 3.8 MMOL/L (3.5-5.1) Chloride Level 107 MMOL/L (98-107) Carbon Dioxide Level 28 MMOL/L (21-32) Anion Gap 5 mmol/L (5-15) Blood Urea Nitrogen 17 mg/dL (7-18) Creatinine 0.7 MG/DL (0.55-1.30) Estimate Glomerular Filtration Rate > 60 mL/min (>60) Glucose Level 86 MG/DL (74-106) Calcium Level 8.7 MG/DL (8.5-10.1) Total Bilirubin 0.5 MG/DL (0.2-1.0) Aspartate Amino Transferase (AST) 63 U/L (15-37) H Alanine Aminotransferase (ALT) 52 U/L (12-78) Alkaline Phosphatase 125 U/L (46-116) H Total Protein 8.3 G/DL (6.4-8.2) H Albumin 3.3 G/DL (3.4-5.0) L Globulin 5.0 g/dL Albumin/Globulin Ratio 0.7 (1.0-2.7) L Salicylates Level < 0.2 ug/mL (2.8-20) L Acetaminophen Level < 2 MCG/ML (10-30) L Phenytoin (Dilantin) Level < 0.5 ug/mL (10-20) L Phenobarbital Level < 1.0 ug/mL (15-40) L Serum Alcohol < 3 mg/dL Urine Color Yellow Urine Appearance Clear Urine pH 6 (4.5-8.0) Urine Specific Butler 1.020 (1.005-1.035) Urine Protein 1+ (NEGATIVE) H Urine Glucose (UA) Negative (NEGATIVE) Urine Ketones Negative (NEGATIVE) Urine Blood 2+ (NEGATIVE) H Urine Nitrite Negative (NEGATIVE) Urine Bilirubin Negative (NEGATIVE) Urine Urobilinogen 1 MG/DL (0.0-1.0) H Urine Leukocyte Esterase 1+ (NEGATIVE) H Urine RBC 0-2 /HPF (0 - 0) H Urine WBC 0-2 /HPF (0 - 0) Urine Squamous Epithelial Cells Occasional /LPF Urine Bacteria Occasional /HPF (NONE) Urine Opiates Screen Negative (NEGATIVE) Urine Barbiturates Screen Negative (NEGATIVE) Phencyclidine (PCP) Screen Negative (NEGATIVE) Urine Amphetamines Screen Negative (NEGATIVE) Urine Benzodiazepines Screen Negative (NEGATIVE) Urine Cocaine Screen Positive (NEGATIVE) H Urine Marijuana (THC) Screen Negative (NEGATIVE) (Colt Haley MD) Last Vital Signs Date Time Temp Pulse Resp B/P (MAP) Pulse Ox O2 Delivery O2 Flow Rate FiO2 09/13/18 05:09 98.4 85 16 144/90 98 Status: improved (Otis Goldman MD) Last Vital Signs Date Time Temp Pulse Resp B/P (MAP) Pulse Ox O2 Delivery O2 Flow Rate FiO2 09/14/18 07:30 86 16 Room Air 09/14/18 07:30 98.1 109/55 100 Status: improved (Colt Haley MD) Disposition: ADMITTED INPATIENT Condition: Serious Otsi Goldman MD Sep 13, 2018 05:20 Colt Haley MD Sep 14, 2018 05:26
[2018-09-13 06:23] LABS: ANION GAP 5 mmol/L (5-15); BASOPHILS % (AUTO) 0.7 % (0.0-2.0); BLOOD UREA NITROGEN 17 mg/dL (7-18); CALCIUM 8.7 MG/DL (8.5-10.1); CARBON DIOXIDE 28 MMOL/L (21-32); CHLORIDE 107 MMOL/L (98-107); CREATININE 0.7 MG/DL (0.55-1.30); EOSINOPHILS % (AUTO) 2.9 % (0.0-3.0); HEMATOCRIT 40.9 % (42.0-52.0); HEMOGLOBIN 14.2 G/DL (14.2-18.0); LYMPHOCYTES % (AUTO) 23.4 % (20.0-45.0); MEAN CORPUSCULAR VOLUME 84 FL (80-99); MONOCYTES % (AUTO) 12.6 % (1.0-10.0); NEUTROPHILS % (AUTO) 60.3 % (45.0-75.0); PLATELET COUNT 203 K/UL (150-450); POTASSIUM 3.8 MMOL/L (3.5-5.1); RED BLOOD COUNT 4.88 M/UL (4.70-6.10); RED CELL DISTRIBUTION WIDTH 12.6 % (11.6-14.8); SODIUM 140 MMOL/L (136-145); WHITE BLOOD COUNT 6.6 K/UL (4.8-10.8)
[2018-09-13 06:28] LABS: ALANINE AMINOTRANSFERASE 52 U/L (12-78); ALBUMIN 3.3 G/DL (3.4-5.0); ALBUMIN/GLOBULIN RATIO 0.7 (1.0-2.7); ALKALINE PHOSPHATASE 125 U/L (46-116); ASPARTATE AMINO TRANSFERASE 63 U/L (15-37); BILIRUBIN,TOTAL 0.5 MG/DL (0.2-1.0)
[2018-09-13 06:29] LABS: APPEARANCE,URINE CLEAR; BILIRUBIN, URINE NEGATIVE (NEGATIVE); GLUCOSE, URINE (UA) NEGATIVE (NEGATIVE); KETONES,URINE NEGATIVE (NEGATIVE); LEUKOCYTE ESTERASE ,URINE 1+ (NEGATIVE); NITRITE,URINE NEGATIVE (NEGATIVE); PH,URINE 6 (4.5-8.0); PROTEIN,URINE 1+ (NEGATIVE); UROBILINOGEN,URINE 1 MG/DL (0.0-1.0)
[2018-09-13 06:35] LABS: COLOR,URINE YELLOW
[2018-09-14] VITALS (9 sets, daily range): BP systolic 109–126; BP diastolic 48–78
[2018-09-14] MEDS ORDERED: Thiamine 100mg tab ORAL ONE (05:30)
[2018-09-14] MEDS ORDERED: ABILIFY10 MG ORAL (07:33)
[2018-09-14] MEDS ORDERED: GLIPIZIDE10 MG PO (07:33)
--- NOTE | 2018-09-14 08:26 | History and Physical ---
History of Present Illness General Date patient seen: Sep 14, 2018 Time patient seen: 08:21 Reason for Hospitalization: Overdose Present Illness HPI 53 yo homeless male with h/o schizophrenia presents because of suicidal attempt. Took over 15 abilify pills in order to commit suicide. Admits to SI. Patient just recently got out of residential 2 days ago. Admits that he is not compliant with his medications. Denies any other complaints, no cp, sob, headaches, visual changes, n/v, abd pain. Patient states he has been in a psychiatric facility in the past. currently pending psych eval 5150 hold placed Allergies: Coded Allergies: No Known Allergies (Unverified , 04/28/18) Medication History Scheduled Aripiprazole* (Abilify*), 5 MG ORAL TWICE A DAY, (Reported) Glipizide (Glipizide), 10 MG PO DAILY, (Reported) Patient History History Provided By: Patient Healthcare decision maker Resuscitation status Advanced Directive on File Family History Family History: Patient reports no known family medical history. Review of Systems Constitutional: Denies: no symptoms, see HPI, chills, sweats, fever, malaise, weakness, other Eye: Denies: no symptoms, see HPI, eye pain, blurred vision, tearing, double vision, nose pain, nose congestion, acuity changes, discharge, other ENT: Denies: no symptoms, see HPI, ear pain, ear discharge, nose pain, nose congestion, throat pain, throat swelling, mouth pain, hearing loss, nasal discharge, other Respiratory: Denies: no symptoms, see HPI, cough, orthopnea, shortness of breath, stridor, wheezing, DUNCAN, sputum, other Cardiovascular: Denies: no symptoms, see HPI, chest pain, edema, palpitations, syncope, PND, other Gastrointestinal: Denies: no symptoms, see HPI, abdominal pain, constipation, diarrhea, nausea, vomiting, melena, hematemesis, other Genitourinary: Denies: no symptoms, see HPI, discharge, dysuria, frequency, hematuria, pain, retention, incontinence, urgency, vag bleed/dc, other Musculoskeletal: Denies: no symptoms, see HPI, back pain, gout, joint pain, joint swelling, muscle pain, muscle stiffness, other Skin: Denies: no symptoms, see HPI, rash, change in color, change in hair/nails , dryness, lesions, other Psychiatric: Reports: anxiety, depressed feelings, emotional problems, SI; Denies: no symptoms, see HPI, prior hx, HI, hallucinations, other Neurological: Denies: no symptoms, see HPI, headache, numbness, paresthesia, seizure, tingling, tremors, focal weakness, syncope, dizziness, other Endocrine: Denies: no symptoms, see HPI, excessive sweating, flushing, intolerance to temperature, increased thirst, increased urine, unexplained weight loss, other Hematologic/Lymphatic: Denies: no symptoms, see HPI, anemia, blood clots, easy bleeding, easy bruising, swollen glands, diathesis, other Physical Exam General Appearance: WD/WN, no apparent distress HEENT: normocephalic, atraumatic, anicteric, mucous membranes moist, PERRL Neck: non-tender, normal alignment, supple, normal inspection Respiratory/Chest: chest wall non-tender, lungs clear, normal breath sounds, no respiratory distress, no accessory muscle use Cardiovascular/Chest: normal peripheral pulses, normal rate, regular rhythm Abdomen: normal bowel sounds, non tender, soft, no organomegaly, no mass Extremities: normal range of motion, non-tender, normal inspection Skin Exam: normal pigmentation, warm/dry 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, no motor/sensory deficits, alert, oriented x 3 Last 24 Hour Vital Signs Date Time Temp Pulse Resp B/P (MAP) Pulse Ox O2 Delivery O2 Flow Rate FiO2 09/14/18 07:30 86 16 Room Air 09/14/18 07:30 98.1 86 16 109/55 100 Room Air 09/14/18 04:55 98.6 82 20 110/71 99 Room Air 09/14/18 03:06 98.6 3 17 124/72 99 Room Air 09/14/18 03:06 98.6 73 17 124/72 99 Room Air 09/14/18 01:25 98.6 77 20 118/78 99 Room Air 09/13/18 23:22 98.6 73 20 112/73 99 Room Air 09/13/18 21:22 98.6 81 20 121/74 99 Room Air 09/13/18 19:52 98.6 82 20 131/69 99 Room Air 09/13/18 17:30 98.6 96 20 140/72 99 Room Air 09/13/18 15:10 90 15 139/78 98 Room Air 09/13/18 11:40 97 18 103/61 96 Room Air 09/13/18 09:40 98.0 78 16 148/78 100 Room Air Height (Feet): 5 Height (Inches): 4.00 Weight (Pounds): 150 Assessment/Plan Problem List: (1) Drug overdose Assessment & Plan: no signs of drug toxicity continue to monitor labs psych consult vitals stable Patient is medical cleared for discharge to psych facility. ICD Codes: T50.901A - Poisoning by unspecified drugs, medicaments and biological substances, accidental (unintentional), initial encounter SNOMED: 29826809, 213830586 Qualifiers: (2) Suicidal behavior Assessment & Plan: SI psych sitter 5150 ICD Codes: R46.89 - Other symptoms and signs involving appearance and behavior SNOMED: 664717520, [id number] Qualifiers: (3) Schizophrenia Assessment & Plan: psych eval stable ICD Codes: F20.9 - Schizophrenia, unspecified SNOMED: 26524155, 671451234 Qualifiers: Qualified Codes: F20.9 - Schizophrenia, unspecified Status: stable Assessment/Plan Patient is medical cleared for discharge to psych facility. 5150 ppx: scd diet: regular, safe tray I have spent spend over 71 minutes regarding patient care and counseling and over 42 minutes of face to face time. Chantel Rosales MD Sep 14, 2018 08:26
[2018-09-15 04:00] VITALS: BP 119/52
[2018-09-15 07:54] VITALS: BP 127/73
[2018-09-15 09:32] LABS: BASOPHILS % (AUTO) 0.8 % (0.0-2.0); EOSINOPHILS % (AUTO) 2.7 % (0.0-3.0); HEMATOCRIT 43.3 % (42.0-52.0); HEMOGLOBIN 13.9 G/DL (14.2-18.0); LYMPHOCYTES % (AUTO) 23.1 % (20.0-45.0); MEAN CORPUSCULAR VOLUME 82 FL (80-99); NEUTROPHILS % (AUTO) 64.4 % (45.0-75.0); PLATELET COUNT 240 K/UL (150-450); RED BLOOD COUNT 5.25 M/UL (4.70-6.10); RED CELL DISTRIBUTION WIDTH 12.5 % (11.6-14.8); WHITE BLOOD COUNT 7.5 K/UL (4.8-10.8)
[2018-09-15 09:44] LABS: ANION GAP 8 mmol/L (5-15); BLOOD UREA NITROGEN 16 mg/dL (7-18); CALCIUM 9.2 MG/DL (8.5-10.1); CARBON DIOXIDE 26 MMOL/L (21-32); CHLORIDE 103 MMOL/L (98-107); CREATININE 0.6 MG/DL (0.55-1.30); POTASSIUM 4.2 MMOL/L (3.5-5.1); SODIUM 137 MMOL/L (136-145)
--- NOTE | 2018-09-15 09:48 | General Progress Note ---
Assessment/Plan Problem List: (1) Drug overdose Assessment & Plan: no signs of drug toxicity continue to monitor labs psych consult vitals stable Patient is medical cleared for discharge to psych facility. ICD Codes: T50.901A - Poisoning by unspecified drugs, medicaments and biological substances, accidental (unintentional), initial encounter SNOMED: 94367253, 418401967 Qualifiers: Qualified Codes: T50.902A - Poisoning by unspecified drugs, medicaments and biological substances, intentional self-harm, initial encounter (2) Suicidal behavior Assessment & Plan: SI psych sitter 5150 ICD Codes: R46.89 - Other symptoms and signs involving appearance and behavior SNOMED: 632304623, [id number] Qualifiers: Qualified Codes: T14.91XA - Suicide attempt, initial encounter (3) Schizophrenia Assessment & Plan: psych eval stable ICD Codes: F20.9 - Schizophrenia, unspecified SNOMED: 54777139, 528038085 Qualifiers: Qualified Codes: F20.9 - Schizophrenia, unspecified Status: stable Assessment/Plan Patient is medical cleared for discharge to psych facility. 5150 ppx: scd diet: regular, safe tray I have spent spend over 45 minutes regarding patient care and counseling and over 35 minutes of face to face time. Subjective Date patient seen: Sep 15, 2018 Time patient seen: 09:46 Allergies: Coded Allergies: No Known Allergies (Unverified , 04/28/18) Subjective f/u SI denies any complaints no acute events overnight 5150 hold, pending inpatient psych placement still feeling Suicidal ROS: 12 point ros negative except for the above Objective Last 24 Hour Vital Signs Date Time Temp Pulse Resp B/P (MAP) Pulse Ox O2 Delivery O2 Flow Rate FiO2 09/15/18 07:54 97.7 82 18 127/73 (91) 96 09/15/18 07:16 78 16 98 Room Air 21 09/15/18 07:11 76 16 98 Room Air 21 09/15/18 04:00 97.6 82 19 119/52 (74) 98 09/14/18 23:45 97.9 78 20 121/59 (79) 98 09/14/18 21:00 Room Air 09/14/18 20:13 97.5 65 19 118/53 (74) 97 09/14/18 16:00 97.3 83 20 124/48 (73) 98 09/14/18 16:00 97.0 89 20 126/68 (87) 98 09/14/18 12:13 97.2 84 18 124/48 (73) 98 09/14/18 10:09 Room Air 09/14/18 10:00 98.6 84 18 120/66 (84) 98 Intake and Output 09/14/18 09/15/18 19:00 07:00 Intake Total 640 ml 480 ml Output Total 1000 ml Balance -360 ml 480 ml Intake Oral 640 ml 480 ml Output Urine Total 1000 ml # Voids 4 6 Laboratory Tests 09/15/18 09:20: White Blood Count 7.5, Red Blood Count 5.25, Hemoglobin 13.9L, Hematocrit 43.3, Mean Corpuscular Volume 82, Mean Corpuscular Hemoglobin 26.5L, Mean Corpuscular Hemoglobin Concent 32.1, Red Cell Distribution Width 12.5, Platelet Count 240, Mean Platelet Volume 5.9L, Neutrophils (%) (Auto) 64.4, Lymphocytes (%) (Auto) 23.1, Monocytes (%) (Auto) 9.0, Eosinophils (%) (Auto) 2.7, Basophils (%) (Auto ) 0.8, Sodium Level 137, Potassium Level 4.2, Chloride Level 103, Carbon Dioxide Level 26, Anion Gap 8, Blood Urea Nitrogen 16, Creatinine 0.6, Estimat Glomerular Filtration Rate > 60, Glucose Level 99, Calcium Level 9.2 Height (Feet): 5 Height (Inches): 4.00 Weight (Pounds): 149 General Appearance: no apparent distress, alert EENT: PERRL/EOMI, normal ENT inspection, TMs normal, pharynx normal Neck: non-tender, normal alignment, supple, normal inspection Cardiovascular: normal peripheral pulses, normal rate, regular rhythm Respiratory/Chest: chest wall non-tender, lungs clear, normal breath sounds, no respiratory distress, no accessory muscle use Abdomen: normal bowel sounds, non tender, soft, no organomegaly, no mass Extremities: normal range of motion, non-tender, normal inspection 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
[2018-09-15 11:22] VITALS: BP 137/82
--- NOTE | 2018-09-15 12:17 | General Progress Note ---
Assessment/Plan Problem List: (1) Schizophrenia ICD Codes: F20.9 - Schizophrenia, unspecified SNOMED: 37713067, 547276432 Qualifiers: (2) Drug overdose ICD Codes: T50.901A - Poisoning by unspecified drugs, medicaments and biological substances, accidental (unintentional), initial encounter SNOMED: 55557153, 510747518 Qualifiers: Assessment/Plan I recommend to dc when medically cleared The pt is not at imminent dts/sto the pt's presentation is not consistent with genuine psychotic sxs. Subjective Date patient seen: Sep 14, 2018 Allergies: Coded Allergies: No Known Allergies (Unverified , 01/31/17) Subjective the pt c/o AH Objective Last 24 Hour Vital Signs Date Time Temp Pulse Resp B/P (MAP) Pulse Ox O2 Delivery O2 Flow Rate FiO2 09/15/18 11:22 97.5 68 18 137/82 (100) 97 09/15/18 11:16 72 16 99 Room Air 21 09/15/18 11:10 71 16 99 Room Air 21 09/15/18 07:54 97.7 82 18 127/73 (91) 96 09/15/18 07:16 78 16 98 Room Air 21 09/15/18 07:11 76 16 98 Room Air 21 09/15/18 04:00 97.6 82 19 119/52 (74) 98 09/14/18 23:45 97.9 78 20 121/59 (79) 98 09/14/18 21:00 Room Air 09/14/18 20:13 97.5 65 19 118/53 (74) 97 09/14/18 16:00 97.3 83 20 124/48 (73) 98 09/14/18 16:00 97.0 89 20 126/68 (87) 98 Intake and Output 09/14/18 09/15/18 19:00 07:00 Intake Total 640 ml 480 ml Output Total 1000 ml Balance -360 ml 480 ml Intake Oral 640 ml 480 ml Output Urine Total 1000 ml # Voids 4 6 Laboratory Tests 09/15/18 09:20: White Blood Count 7.5, Red Blood Count 5.25, Hemoglobin 13.9L, Hematocrit 43.3, Mean Corpuscular Volume 82, Mean Corpuscular Hemoglobin 26.5L, Mean Corpuscular Hemoglobin Concent 32.1, Red Cell Distribution Width 12.5, Platelet Count 240, Mean Platelet Volume 5.9L, Neutrophils (%) (Auto) 64.4, Lymphocytes (%) (Auto) 23.1, Monocytes (%) (Auto) 9.0, Eosinophils (%) (Auto) 2.7, Basophils (%) (Auto ) 0.8, Sodium Level 137, Potassium Level 4.2, Chloride Level 103, Carbon Dioxide Level 26, Anion Gap 8, Blood Urea Nitrogen 16, Creatinine 0.6, Estimat Glomerular Filtration Rate > 60, Glucose Level 99, Calcium Level 9.2 Height (Feet): 5 Height (Inches): 4.00 Weight (Pounds): 149 General Appearance: no apparent distress, alert Neurologic: oriented x 3, responsive, normal mood/affect Josias Cueto MD Sep 15, 2018 12:17
[2018-09-15 16:00] VITALS: BP 132/80
[2018-09-15 20:00] VITALS: BP 124/67
[2018-09-15] MEDS ORDERED: LORazepam 1mg tab ORAL PRN (23:00)
--- NOTE | 2018-09-15 23:03 | Consultation ---
History of Present Illness General Date patient seen: Sep 15, 2018 Chief Complaint: Overdose Present Illness HPI 53 yo homeless male with h/o schizophrenia presents with "suicidal attempt." The pt was insisting that he was hearing voices however he was unable to specify what the voices are telling him. The pt stated that he doesn't have a place to go to and he was not reliable historian. he told me that he was recently hospitalized in [place]. he told the er doctor that he was recently at [facility]. the pt has been observed eating and his affect is not depressed nor anxious. Allergies: Coded Allergies: No Known Allergies (Unverified , 01/31/17) Medication History Scheduled Aripiprazole* (Abilify*), 30 MG ORAL TID Glipizide (Glipizide), 10 MG PO BID Levetiracetam (Levetiracetam), 1,000 MG ORAL Q12HR Metformin Hcl (Metformin Hcl Er), 500 MG ORAL BID Phenytoin Sodium Extended* (Dilantin*), 100 MG ORAL Q12HR Discontinued Medications Aripiprazole* (Abilify*), 5 MG ORAL TWICE A DAY, (Reported) Discontinued Reason: MD discontinued med Diclofenac Potassium (Diclofenac Potassium), 50 MG PO DAILY PRN for For Headache , (Reported) Discontinued Reason: MD discontinued med Docusate Sodium* (Colace*), 100 MG ORAL DAILY, (Reported) Discontinued Reason: MD discontinued med Glipizide (Glipizide), 10 MG PO DAILY, (Reported) Discontinued Reason: MD discontinued med Phenytoin (Dilantin), 50 MG ORAL THREE TIMES A DAY, (Reported) Discontinued Reason: MD discontinued med Trazodone Hcl* (Desyrel*), 50 MG ORAL BEDTIME, (Reported) Discontinued Reason: MD discontinued med Patient History Limited by: medical condition History Provided By: Patient, Medical Record Healthcare decision maker SELF Resuscitation status Full Code Advanced Directive on File Past Medical/Surgical History Past Medical/Surgical History: (1) Drug overdose (2) Schizophrenia (3) Unsteady gait (4) Suicidal behavior (5) Failure to thrive (6) Seizure disorder (7) HTN (hypertension) Review of Systems Psychiatric: Reports: hallucinations Physical Exam General Appearance: no apparent distress, alert Neurologic: oriented x 3, responsive, normal mood/affect Last 24 Hour Vital Signs Date Time Temp Pulse Resp B/P (MAP) Pulse Ox O2 Delivery O2 Flow Rate FiO2 09/15/18 21:00 Room Air 09/15/18 20:00 98.3 74 18 124/67 (86) 98 09/15/18 16:00 98.0 70 18 132/80 (97) 98 09/15/18 14:42 75 16 96 Room Air 21 09/15/18 14:35 73 16 97 Room Air 21 09/15/18 11:22 97.5 68 18 137/82 (100) 97 09/15/18 11:16 72 16 99 Room Air 21 09/15/18 11:10 71 16 99 Room Air 21 09/15/18 09:00 Room Air 09/15/18 07:54 97.7 82 18 127/73 (91) 96 09/15/18 07:16 78 16 98 Room Air 21 09/15/18 07:11 76 16 98 Room Air 21 09/15/18 04:00 97.6 82 19 119/52 (74) 98 09/14/18 23:45 97.9 78 20 121/59 (79) 98 Intake and Output 09/14/18 09/15/18 19:00 07:00 Intake Total 640 ml 480 ml Output Total 1000 ml Balance -360 ml 480 ml Intake Oral 640 ml 480 ml Output Urine Total 1000 ml # Voids 4 6 Laboratory Tests Test 09/15/18 09:20 White Blood Count 7.5 K/UL (4.8-10.8) Red Blood Count 5.25 M/UL (4.70-6.10) Hemoglobin 13.9 G/DL (14.2-18.0) L Hematocrit 43.3 % (42.0-52.0) Mean Corpuscular Volume 82 FL (80-99) Mean Corpuscular Hemoglobin 26.5 PG (27.0-31.0) L Mean Corpuscular Hemoglobin Concent 32.1 G/DL (32.0-36.0) Red Cell Distribution Width 12.5 % (11.6-14.8) Platelet Count 240 K/UL (150-450) Mean Platelet Volume 5.9 FL (6.5-10.1) L Neutrophils (%) (Auto) 64.4 % (45.0-75.0) Lymphocytes (%) (Auto) 23.1 % (20.0-45.0) Monocytes (%) (Auto) 9.0 % (1.0-10.0) Eosinophils (%) (Auto) 2.7 % (0.0-3.0) Basophils (%) (Auto) 0.8 % (0.0-2.0) Sodium Level 137 MMOL/L (136-145) Potassium Level 4.2 MMOL/L (3.5-5.1) Chloride Level 103 MMOL/L (98-107) Carbon Dioxide Level 26 MMOL/L (21-32) Anion Gap 8 mmol/L (5-15) Blood Urea Nitrogen 16 mg/dL (7-18) Creatinine 0.6 MG/DL (0.55-1.30) Estimat Glomerular Filtration Rate > 60 mL/min (>60) Glucose Level 99 MG/DL (74-106) Calcium Level 9.2 MG/DL (8.5-10.1) Height (Feet): 5 Height (Inches): 4.00 Weight (Pounds): 149 Medications Current Medications Medications (Trade) Dose Ordered Sig/[place] Route PRN Reason Start Time Stop Time Status Last Admin Dose Admin Lorazepam (Ativan) 2 mg Q6H PRN ORAL For Anxiety 09/15/18 23:00 09/22/18 22:59 UNV Risperidone (RisperDAL) 2 mg BID ORAL 09/15/18 13:00 10/15/18 12:59 09/15/18 19:10 Assessment/Plan Problem List: (1) Schizophrenia ICD Codes: F20.9 - Schizophrenia, unspecified SNOMED: [id number], [id number] Qualifiers: Assessment/Plan I recommend to dc when medically cleared The pt is not at imminent dts/sto the pt's presentation is not consistent with genuine psychotic sxs. Josias Cueto MD Sep 15, 2018 23:03
[2018-09-16] VITALS: BP 124/67
[2018-09-16 04:00] VITALS: BP 130/78
[2018-09-16 07:11] LABS: ANION GAP 8 mmol/L (5-15); BLOOD UREA NITROGEN 18 mg/dL (7-18); CALCIUM 9.3 MG/DL (8.5-10.1); CARBON DIOXIDE 27 MMOL/L (21-32); CHLORIDE 105 MMOL/L (98-107); CREATININE 0.7 MG/DL (0.55-1.30); POTASSIUM 4.2 MMOL/L (3.5-5.1); SODIUM 140 MMOL/L (136-145)
[2018-09-16 07:14] LABS: BASOPHILS % (AUTO) 0.5 % (0.0-2.0); EOSINOPHILS % (AUTO) 3.4 % (0.0-3.0); HEMATOCRIT 42.4 % (42.0-52.0); HEMOGLOBIN 13.7 G/DL (14.2-18.0); LYMPHOCYTES % (AUTO) 25.5 % (20.0-45.0); MEAN CORPUSCULAR VOLUME 83 FL (80-99); MONOCYTES % (AUTO) 10.4 % (1.0-10.0); NEUTROPHILS % (AUTO) 60.2 % (45.0-75.0); PLATELET COUNT 257 K/UL (150-450); RED BLOOD COUNT 5.11 M/UL (4.70-6.10); RED CELL DISTRIBUTION WIDTH 12.5 % (11.6-14.8); WHITE BLOOD COUNT 6.4 K/UL (4.8-10.8)
[2018-09-16] MEDS ORDERED: ABILIFY20 MG ORAL (07:46)
[2018-09-16] MEDS ORDERED: KEPPRA500 M3 ORAL (07:46)
[2018-09-16] MEDS ORDERED: METFORMIN HCL500 M4 ORAL (07:46)
[2018-09-16] MEDS ORDERED: GLIPIZIDE10 MG PO (07:46)
[2018-09-16] MEDS ORDERED: DILANTIN100 MG ORAL (07:46)
--- NOTE | 2018-09-16 07:51 | Discharge Instructions ---
Discharge Instructions Discharge Instructions Follow up with: psychiatry in 1 week, and pcp in 1 week Call MD/Return to Hospital if: you feel suicidal or like hurting anyone. return if hallucinations Activity: resume normal activities For Congestive Heart Failure Reminder Report to your physician any weight gain of 5 pounds or more in one week. Chantel Rosales MD Sep 16, 2018 07:51
--- NOTE | 2018-09-16 08:04 | Discharge Summary ---
Discharge Summary Hospital Course Date of Admission Sep 14, 2018 at 06:54 Date of Discharge 09/16/18 Admitting Diagnosis FAILURE TO THRIVE HPI Iftikhar Mendieta is a 63 year old male who was admitted on Sep 14, 2018 at 06:54 for suicidal ideations Hospital Course 53 yo homeless male with h/o schizophrenia presents because of suicidal attempt. Took over 15 abilify pills in order to commit suicide. Admits to SI. Patient just recently got out of skilled nursing 2 days ago. Admits that he is not compliant with his medications. Denies any other complaints, no cp, sob, headaches, visual changes, n/v, abd pain. Patient states he has been in a psychiatric facility in the past. Psychiatry was consulted. Per psychiatry patient is currently is not having SI and is stable per psych: "recommend to dc when medically cleared. The pt is not at imminent dts/sto. the pt's presentation is not consistent with genuine psychotic sxs." patient is homeless, patient is aware of discharge, patient understands the plan and would like to go home, states he has a place to stay and is refusing assisted or any inpatient psych facility at this time social services analyst and I have discussed appropriate dispo planning with patient at length however patient would like to go to the address he has given to . I have spent spend over 46 minutes regarding patient care, discharge disposition and counseling and over 35 minutes of face to face time. 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 grossly normal, no motor/sensory deficits, alert, oriented x 3, responsive, normal mood/affect Skin: normal pigmentation, warm/dry Discharge Medications Continued Medications: Aripiprazole* (Abilify*) 20 Mg Tablet 30 MG ORAL TID for 30 Days, #30 TAB (This prescription has been renewed) Glipizide (Glipizide) 10 Mg Tablet 10 MG PO BID for 60 Days, #30 TAB (This prescription has been renewed) Levetiracetam (Levetiracetam) 500 Mg Tablet 1000 MG ORAL Q12HR, #60 TAB (This prescription has been renewed) Metformin Hcl (Metformin Hcl Er) 500 Mg Tab.er.24 500 MG ORAL BID for 30 Days, #30 TAB (This prescription has been renewed) Phenytoin Sodium Extended* (Dilantin*) 100 Mg Capsule 100 MG ORAL Q12HR, #60 CAP (This prescription has been renewed) Discontinued Medications: Aripiprazole* (Abilify*) 10 Mg Tablet 5 MG ORAL TWICE A DAY, TAB Diclofenac Potassium (Diclofenac Potassium) 50 Mg Tablet 50 MG PO DAILY PRN for For Headache, TAB Docusate Sodium* (Colace*) 100 Mg Capsule 100 MG ORAL DAILY, CAP Glipizide (Glipizide) 10 Mg Tablet 10 MG PO DAILY, TAB Phenytoin (Dilantin) 50 Mg Tab.chew 50 MG ORAL THREE TIMES A DAY, #90 TAB 0 Refills Trazodone Hcl* (Desyrel*) 50 Mg Tablet 50 MG ORAL BEDTIME, TAB Discharge Condition Upon Discharge: stable Discharge Disposition Patient was discharged to Discharge Diagnoses: (1) Seizure disorder (2) HTN (hypertension) (3) Drug overdose (4) Schizophrenia (5) Suicidal behavior Discharge Instructions Discharge Instructions Follow up with: psychiatry in 1 week, and pcp in 1 week Call MD/Return to Hospital if: you feel suicidal or like hurting anyone. return if hallucinations Activity: resume normal activities Chantel Rosales MD Sep 16, 2018 08:04
[2018-09-16 08:10] VITALS: BP 131/63
== END 2018-09-16 10:53 | disposition home or self-care (01) | DRG 817 ==
LOC: EDBD 05:16 → MERGE 05:22 → EMR 05:22 → EDBD 05:22 → 4E 09-14 06:54 → MERGE 09-14 06:54 → EDBEDREQ 09-14 07:59 → 4E 09-14 09:32
DX: T43.592A Poisoning by other antipsychotics and neuroleptics, intentional self-harm, initial encounter (principal); F20.9 Schizophrenia, unspecified; Z59.0 Homelessness; T14.91XA Suicide attempt, initial encounter; F14.10 Cocaine abuse, uncomplicated; R26.81 Unsteadiness on feet; I10 Essential (primary) hypertension
CPT/HCPCS: 36415; 80048; 80053; 80184; 80185; 80307; 80329; 81003; 85025; 87081; 99285

== ENCOUNTER 2019-01-08 15:28 | Emergency (ER) | payer MEDICAID ==
[~2019-01-08] VITALS: Ht 188 cm; Wt 88.5 kg
[~2019-01-08 15:28] MED LIST changes: +ABILIFY10 MG ORAL
[2019-01-08 15:30] VITALS: BP 172/109
--- NOTE | 2019-01-08 15:30 | NUR ---
ED Nurse Note: pt bought by RA from side walk due to generalized weaknee on both legs. per pt, having pain for last 5 hrs. no injury or trauma reported. AAO x4. respirations even and non-labored noted. pt appears to be sleeping. skin warm to touch. high bp noted on school lunch monitor. no cp or SOB. will wait for the further order.
--- NOTE | 2019-01-08 16:17 | NUR ---
ED Nurse Note: pt went down for CT.
--- NOTE | 2019-01-08 17:05 | Diagnostic Imaging Report ---
Indication: Altered mental status Technique: Contiguous 5 mm thick transaxial imaging of the head obtained in a Siemens Sensation [address] scanner. Soft tissue and bone windows generated. Automatic Exposure Control was utilized. Total Dose length Product (DLP): 1498.[address] Dose Index Volume (CTDIvol): 70.38 mGy Comparison: none Findings: Patchy low-attenuation cystic foci noted within the thalami bilaterally and deep white matter. Fairly extensive white matter low-attenuation noted primarily in the periventricular distribution consistent with chronic small cell disease. There is no definite mass effect or edema. There is no evidence of acute intracranial hemorrhage. The bones are osteopenic and slightly heterogeneous. IMPRESSION: No definite evidence of acute intracranial hemorrhage, mass effect or edema. 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 The CT scanner at [facility] is accredited by the [employer] and the scans are performed using dose optimization techniques as appropriate to a performed exam including Automatic Exposure control.
[2019-01-08 17:30] VITALS: BP 174/111
--- NOTE | 2019-01-08 19:17 | Emergency Room Report ---
History of Present Illness General Chief Complaint: General Complaint Source: Patient Present Illness HPI 63-year-old male presents ED for evaluation. Patient brought in by EMS. Found on Street. He feels weak. Concern for alcohol use by EMS. Denies alcohol use. Denies drug use. Denies headaches. Denies blurry vision. Denies any abdominal pain nausea or vomiting. No other aggravating relieving factors. Denies any other associated symptoms Allergies: Coded Allergies: No Known Allergies (Unverified , 01/08/19) Patient History Past Medical History: HTN Past Surgical History: none Pertinent Family History: none Social History: Denies: smoking, alcohol use, drug use Immunizations: UTD Reviewed Nursing Documentation: PMH: Agreed; PSxH: Agreed Nursing Documentation-PMH Hx Hypertension: Yes Review of Systems All Other Systems: negative except mentioned in HPI Physical Exam Vital Signs Date Time Temp Pulse Resp B/P (MAP) Pulse Ox O2 Delivery O2 Flow Rate FiO2 01/08/19 15:17 98.4 100 18 200/100 96 Room Air Sp02 EP Interpretation: reviewed, normal General Appearance: no apparent distress, GCS 15, non-toxic, lethargic Head: normocephalic, atraumatic Eyes: bilateral eye normal inspection, bilateral eye PERRL ENT: hearing grossly normal, normal pharynx, no angioedema, normal voice Neck: full range of motion, supple/symm/no masses Respiratory: chest non-tender, lungs clear, normal breath sounds, speaking full sentences Cardiovascular #1: regular rate, rhythm, no edema Cardiovascular #2: 2+ carotid (R), 2+ carotid (L), 2+ radial (R), 2+ radial (L) , 2+ dorsalis pedis (R), 2+ dorsalis pedis (L) Gastrointestinal: normal bowel sounds, non tender, soft, non-distended, no guarding, no rebound Rectal: deferred Genitourinary: normal inspection, no CVA tenderness Musculoskeletal: back normal, gait/station normal, normal range of motion, non- tender Neurologic: other - lethargic Psychiatric: other - lethargic Reflexes: 3+ bicep (R), 3+ bicep (L), 3+ tricep (R), 3+ tricep (L), 3+ knee (R) , 3+ knee (L) Skin: normal color, no rash, warm/dry, well hydrated Lymphatic: no adenopathy Medical Decision Making Homeless Attestation I, The treating physician Dr. Hernandez, has assessed and agrees that patient is medically stable for discharge to an outpatient disposition. Diagnostic Impression: Primary Impression: Substance abuse ER Course Hospital Course 64 yo M presents with weakness, lethargy Differential diagnoses include: Psychosis, EtOH, drug abuse Clinical course patient placed on stretcher. On cafeteria monitor. After initial history and physical ordered IV fluids, CT head Utox + amphetamines, THC CT brain shows no acute pathology Patient alert and oriented. Walking in ED. Patient can be safely discharged at this time. Homeless checklist completed i. I feel this is a highly complex case requiring extensive working including EKG/Rhythm strip, Xray/CT/US, Blood/urine lab work, repeat exams while in ED, and administration of strong opiates/narcotics for pain control, admission to hospital or close patient follow up. Diagnosis - substance abuse Stable and discharged to home. Followup with PMD. Return to ED if symptoms recur or worsen Labs Test 01/08/19 17:10 Urine Opiates Screen Negative (NEGATIVE) Urine Barbiturates Screen Negative (NEGATIVE) Phencyclidine (PCP) Screen Negative (NEGATIVE) Urine Amphetamines Screen Positive (NEGATIVE) Urine Benzodiazepines Screen Negative (NEGATIVE) Urine Cocaine Screen Negative (NEGATIVE) Urine Marijuana (THC) Screen Positive (NEGATIVE) CT/MRI/US Diagnostic Results CT/MRI/US Diagnostic Results : Imaging Test Ordered: CT Head Impression no acute process Last Vital Signs Date Time Temp Pulse Resp B/P (MAP) Pulse Ox O2 Delivery O2 Flow Rate FiO2 01/08/19 17:30 85 15 174/111 99 Room Air 01/08/19 15:30 98.0 Status: improved Disposition: HOME, SELF-CARE Condition: Stable Steven Hernandez MD Jan 08, 2019 19:17
[2019-01-08 19:30] VITALS: BP 137/72
--- NOTE | 2019-01-08 19:30 | NUR ---
ER DISCHARGE NOTE: Patient is cleared to be discharged per ERMD, pt is aox4, on room air, with stable vital signs. pt was given dc and prescription instructions, pt was able to verbalize understanding, pt id band and iv site removed without complications. pt is able to ambulate with steady gait. pt took all belongings.
--- NOTE | 2019-01-08 19:30 | NUR ---
HAND-OFF: Report given to RICHIE Torres.
== END 2019-01-08 19:30 | disposition home or self-care (01) ==
LOC: EDBD 15:28 → EMR 17:58 → MERGE 17:58 → EMR 19:30
DX: F19.10 Other psychoactive substance abuse, uncomplicated (principal); I10 Essential (primary) hypertension; R41.82 Altered mental status, unspecified
CPT/HCPCS: 36415; 70450; 80307; 82962; 99284

== ENCOUNTER 2019-10-12 11:54 | Emergency (ER) | payer MEDICAID ==
[~2019-10-12] VITALS: Ht 167.6 cm; Wt 54.4 kg
[~2019-10-12 11:54] MED LIST changes: +ABILIFY2 MG ORAL
[2019-10-12 11:58] VITALS: BP 167/98
--- NOTE | 2019-10-12 11:58 | NUR ---
ED Nurse Note: Patient ANGIE, he was sleeping outside of a store and the store director perioperative called 911. Patient states he lives on the [address]. Patient AxO x 4, no s/s of acute distress. Patient connected to the security monitor, bed in lowest position.
[2019-10-12] MEDS ORDERED: Acetaminophen 500mg (ES) tab ORAL ONE (12:15)
--- NOTE | 2019-10-12 12:26 | NUR ---
ED Nurse Note: Patient taken to CT
--- NOTE | 2019-10-12 12:40 | NUR ---
ED Nurse Note: Patient returned from CT.
--- NOTE | 2019-10-12 13:12 | Diagnostic Imaging Report ---
Indication: Headache Technique: Contiguous 5 mm thick transaxial imaging of the head obtained in a Siemens Sensation [address] scanner. Soft tissue and bone windows generated. Automatic Exposure Control was utilized. Total Dose length Product (DLP): 1514.[address] Dose Index Volume (CTDIvol): 62.7 mGy Comparison: none Findings: The size and configuration of the cortical sulci, basal cisterns, and ventricles are within normal limits for age. There is no mass effect, midline shift, or edema identified. There is no evidence of acute hemorrhage or abnormal intra-axial or extra-axial fluid collections. The bones and soft tissues are unremarkable. There is left ethmoid sinus opacification. Impression: No mass effect, edema or acute bleed. Sinusitis The CT scanner at [facility] is accredited by the [employer] and the scans are performed using dose optimization techniques as appropriate to a performed exam including Automatic Exposure control.
[2019-10-12] MEDS ORDERED: ABILIFY20 MG ORAL (13:46)
[2019-10-12] MEDS ORDERED: TYLENOL EXTRA500 MG ORAL (13:46)
[2019-10-12] MEDS ORDERED: TAMIFLU75 MG ORAL (13:46)
[2019-10-12] MEDS ORDERED: DILANTIN100 MG ORAL (13:46)
[2019-10-12 13:55] VITALS: BP 158/99
--- NOTE | 2019-10-12 13:58 | Diagnostic Imaging Report ---
Indication: Dyspnea Comparison: None A single view chest radiograph was obtained. Findings: Cardiomediastinal appearance is within normal limits for age. The lungs are clear. Pulmonary vascularity is appropriate. The diaphragmatic contour is smooth and costophrenic angles are sharp. No pleural effusions are identified. The bones are unremarkable. Impression: No acute findings
--- NOTE | 2019-10-12 14:47 | Emergency Room Report ---
History of Present Illness General Chief Complaint: Upper Respiratory Illness Source: Patient Present Illness HPI 64-year-old male presents ED for evaluation. Brought in by EMS from Street. States that yesterday he fell and hit his head. Denies LOC. Complaining of headache and generalized pain. Dull, 8 out of 10, nonradiating. Also complaining of runny nose and congestion. Cough is dry. Denies fevers or chills. Did not receive flu shot this year. Was sleeping outside of building when owner/photographer called 911. No other aggravating relieving factors. Denies any other associated symptoms Allergies: Coded Allergies: No Known Allergies (Unverified , 01/31/17) Patient History Past Medical History: HTN, seizures, psych hx Past Surgical History: none Pertinent Family History: none Social History: Denies: smoking, alcohol use, drug use Immunizations: UTD Reviewed Nursing Documentation: PMH: Agreed; PSxH: Agreed Nursing Documentation-PMH Past Medical History: No History, Except For Hx Cardiac Problems: Yes Hx Hypertension: Yes Hx Diabetes: Yes Hx Cancer: No Hx Gastrointestinal Problems: No History Of Psychiatric Problem: Yes Hx Neurological Problems: Yes Hx Seizures: Yes Hx Weakness: Yes - UNSTEADY GAIT Review of Systems All Other Systems: negative except mentioned in HPI Physical Exam Vital Signs Date Time Temp Pulse Resp B/P (MAP) Pulse Ox O2 Delivery O2 Flow Rate FiO2 10/12/19 11:50 97.3 90 22 178/115 (136) 99 Room Air Sp02 EP Interpretation: reviewed, normal General Appearance: no apparent distress, alert, GCS 15, non-toxic Head: normocephalic, atraumatic Eyes: bilateral eye normal inspection, bilateral eye PERRL ENT: hearing grossly normal, normal pharynx, no angioedema, normal voice Neck: full range of motion, supple/symm/no masses Respiratory: chest non-tender, lungs clear, normal breath sounds, speaking full sentences Cardiovascular #1: regular rate, rhythm, no edema Cardiovascular #2: 2+ carotid (R), 2+ carotid (L), 2+ radial (R), 2+ radial (L) , 2+ dorsalis pedis (R), 2+ dorsalis pedis (L) Gastrointestinal: normal bowel sounds, non tender, soft, non-distended, no guarding, no rebound Rectal: deferred Genitourinary: normal inspection, no CVA tenderness Musculoskeletal: back normal, normal range of motion, gait/station normal, non- tender Neurologic: alert, motor strength/tone normal, oriented x3, sensory intact, responsive, speech normal Psychiatric: judgement/insight normal, memory normal, mood/affect normal, no suicidal/homicidal ideation Reflexes: 3+ bicep (R), 3+ bicep (L), 3+ tricep (R), 3+ tricep (L), 3+ knee (R) , 3+ knee (L) Lymphatic: no adenopathy Medical Decision Making Diagnostic Impression: Primary Impression: Flu-like symptoms Additional Impression: Fall Qualified Codes: W19.XXXA - Unspecified fall, initial encounter ER Course 64-year-old male presents the ED complaining of headache, cough and congestion. Status post fall. History of seizures. differential -head injury, seizure, influenza, pneumonia Placed on stretcher. After initial history and physical I ordered pain meds, CT head, chest x-ray. CT head unremarkable Chest x-rayno focal infiltrate I discussed findings with patient. Has history of seizures. No reported seizure activity. States he does not have his medications. I will provide refills. Also takes Abilify I will provide him with a refill of his Abilify. Safe for discharge for close outpatient follow-up. Given food and clothing. Patient states that he does have a place to live. I will provide PMD referrals Diagnosisflulike symptoms, fall Stable and discharged to home with prescription for Abilify, Dilantin, Tamiflu, Tylenol. Follow-up with PMD. Return to ED if symptoms recur or worsen Chest X-Ray Diagnostic Results Chest X-Ray Diagnostic Results : Chest X-Ray Ordered: Yes # of Views/Limited/Complete: 1 View Indication: Other - cough EP Interpretation: Yes Interpretation: no consolidation, no effusion, no pneumothorax, no acute cardiopulmonary disease Impression: No acute disease Electronically Signed by: Electronically signed by Steven Hernandez MD CT/MRI/US Diagnostic Results CT/MRI/US Diagnostic Results : Imaging Test Ordered: CT head Impression Findings: The size and configuration of the cortical sulci, basal cisterns, and ventricles are within normal limits for age. There is no mass effect, midline shift, or edema identified. There is no evidence of acute hemorrhage or abnormal intra- axial or extra-axial fluid collections. The bones and soft tissues are unremarkable. There is left ethmoid sinus opacification. Impression: No mass effect, edema or acute bleed. Last Vital Signs Date Time Temp Pulse Resp B/P (MAP) Pulse Ox O2 Delivery O2 Flow Rate FiO2 10/12/19 11:58 97.3 81 22 167/98 99 Room Air Status: improved Disposition: HOME, SELF-CARE Condition: Stable Scripts Acetaminophen* (TYLENOL EXTRA STRENGTH*) 500 Mg Tablet 500 MG ORAL Q8H PRN for Prn Headache/Temp > 101, #30 TAB 0 Refills Prov: Steven Hernandez MD 10/12/19 Oseltamivir Phosphate (Tamiflu) 75 Mg Capsule 75 MG ORAL TWICE A DAY for 5 Days, #10 CAP Prov: Steven Hernandez MD 10/12/19 Phenytoin Sodium Extended* (DILANTIN*) 100 Mg Capsule 100 MG ORAL Q12HR, #60 CAP Prov: Steven Hernandez MD 10/12/19 Aripiprazole* (ABILIFY*) 20 Mg Tablet 30 MG ORAL TID for 30 Days, #30 TAB Prov: Steven Hernandez MD 10/12/19 Referrals: NON PHYSICIAN (PCP) [facility] Patient Instructions: Seizure, Adult, [id number] Steven Hernandez MD Oct 12, 2019 14:46
--- NOTE | 2019-10-12 16:07 | NUR ---
ER DISCHARGE NOTE: Patient is cleared to be discharged per ERMD, pt is aox4, on room air, with stable vital signs. Patient now says he lives at [address] in [place], which is also the address listed in his demographics. Patient was given dc and prescription instructions, pt was able to verbalize understanding, pt id band removed. pt is able to ambulate with steady gait. Patient given winter-appropriate clothing, sandwich, and juice, along with taxi voucher.
== END 2019-10-12 13:55 | disposition home or self-care (01) ==
LOC: EDBD 11:54 → EMR 13:06
DX: R51 Headache (principal); R05 Cough; E11.9 Type 2 diabetes mellitus without complications; I10 Essential (primary) hypertension; G40.909 Epilepsy, unspecified, not intractable, without status epilepticus
CPT/HCPCS: 70450; 71045; Z7502; 99284